=== PATIENT | male | born 1995 | race Caucasian/White ===

== ENCOUNTER 2016-12-24 21:13 | Emergency (ER) | payer OTHER ==
[2016-12-24] MEDS ORDERED: KETOROLAC TROMETHAMINE 60 MG/2 ML VIAL IM ONE ×2 (21:29→21:30)
--- NOTE | 2016-12-24 21:31 | ERNOTE ---
[facility] Date of Service: 12/24/16 Presenting Symptoms: other - Nasal injury Time Seen by Provider: 12/24/16 21:22 Source: patient, family, RN notes reviewed Exam Limitations: no limitations - Immun/Allergies/Home Medications Immunizations: IMMUNIZATION HX Immunizations Up to Date Yes History of Influenza Vaccine No Hx Pneumococcal Vaccination No Allergies/Adverse Reactions: Allergies Allergy/AdvReac Type Severity Reaction Status Date / Time Penicillins Allergy Verified 11/26/15 12:44 Home Medications: HOME MEDICATIONS traMADol HCL [Ultram] 50 mg PO QID PRN #30 tab 11/26/15 [Last Taken Unknown] - Pain Score Pain Score #1 Pain Score: 10 - History of Present Illness Narrative: 21 y/o male with nasal pain and swelling after being struck in the nose by his dog's head 2 days ago. He reports having a nosebleed immediately afterward. He did not lose consciousness. He has been taking Tylenol and ibuprofen without any improvement in his pain. He reports breaking his nose in the past, but not getting seen for it until 3 months later. It did not require any intervention at that time. Date (Duration): 12/22/16 ENT Location: Present: nose Prearrival Treatment: Present: over the counter meds Associated Symptoms - ENT: Reports: nasal congestion/drainage, facial pain/ swelling, trauma. Denies: tooth pain, headache Prior Treament: Reports: similar symptoms before Review of Systems - Review of Systems Constitutional: Absent: recent illness, fever, malaise EYE: Absent: eye pain, eye discharge, vision changes ENT: Present: nose pain, nose congestion. Absent: nasal drainage, sore throat Respiratory: Present: no symptoms reported Cardiology: Present: no symptoms reported Gastrointestinal/Abdominal: Absent: nausea, vomiting Genitourinary: Present: no symptoms reported Musculoskeletal: Absent: neck pain, joint pain, joint swelling Skin: Absent: rash, lesions, change in color Neurological: Absent: headache, dizziness/light-headedness Endocrine: Present: no symptoms reported Hematologic/Lymphatic: Absent: easy bruising, easy bleeding Psych: Present: no symptoms reported - Patient's Past Medical History Patient History - Medical: Anxiety Patient History - Cardiac/Respiratory: Hypertension Patient History - Cancer: No Hx of Cancer Patient History - Surgical Procedures: T & A Patient History - Other: None - Social History Living Situations: home Psych History: Hx of Anxiety, Current tx/ever been on anti-depressants or anti- anxiety meds Smoking Status: Current every day smoker Alcohol Use: none Drug Use: none - Immunizations Immunizations Up to Date: Yes Hx Pneumococcal Vaccination: No History of Influenza Vaccine: No Physical Exam - Physical Exam General Appearance: Present: wd/wn, alert, no apparent distress Head Exam: Present: swelling - Nose, tenderness - Nose. Absent: active bleeding , ecchymosis, raccoon eyes Eye Exam: Normal inspection: bilateral, PERRL: bilateral Ears, Nose, Throat: Absent: nasal congestion, sinus pain/drainage Neck: Present: normal inspection, nontender, supple Respiratory: Present: no respiratory distress, no accessory muscle use Extremity Exam: Present: normal inspection, normal range of motion Neurological Exam: Present: alert, oriented, normal mood/affect, no motor/ sensory deficits Skin Exam: Present: normal color, warm/dry ED Progress - Vital Signs Patient's Vital Signs:: I have reviewed the patient's vital signs. Vital Signs: Vital Signs 12/24/16 12/24/16 21:13 21:21 Temperature 36.8 C Pulse Rate 96 Respiratory 18 Rate Blood Pressure 131/67 125/73 O2 Sat by Pulse 98 Oximetry - X-Ray X-Ray #1 X-Ray: Nasal bones Interpretation: Interp. by me X-ray Comments: No acute osseous abnormality noted - Progress/Reassessment Chief Complaint: Nose Pain/Injury Progress:: Improved Departure Clinical Impression: Nasal contusion Qualifiers: Encounter type: initial encounter Qualified Code(s): S00.33XA - Contusion of nose, initial encounter - Departure Disposition: Home self-care Condition: Good Instructions: Contusion, [id number] Additional Instructions: Ice to sore area as needed Ibuprofen 3 tablets (600 mg) every 6 hours as needed with food Follow up with your doctor as needed
[2016-12-24 21:58] VITALS: BP 111/84
== END 2016-12-24 21:55 | disposition home or self-care (01) ==
LOC: ER 21:13
DX: S00.33XA Contusion of nose, initial encounter (principal); F17.200 Nicotine dependence, unspecified, uncomplicated; X58.XXXA Exposure to other specified factors, initial encounter; Y93.9 Activity, unspecified; Y92.9 Unspecified place or not applicable